=== PATIENT | male | born 1985 | race African-American/Black ===

== ENCOUNTER 2017-06-25 08:03 | Emergency (ER) | payer OTHER ==
[2017-06-25 08:11] VITALS: BP 128/80
--- NOTE | 2017-06-25 08:18 | ED Physician Documentation ---
PD HPI MALE - Stated complaint Stated Complaint: MALE - Chief complaint Chief Complaint: General - History obtained from History obtained from: Patient - History of Present Illness Timing - onset: How many days ago (few) Timing - duration: Days Timing - details: Gradual onset, Still present Associated symptoms: Genital sore / lesion (redness and tender along base of glans under foreskin). No: Dysuria, Discharge PD HPI MALE CONTRIB FACTORS: Sexually active (with just his , who is prone to yeast infections, per patient.) Similar symptoms before: Diagnosis (yeast infections of skin, has had it a few times. He tries to shower after workouts regularly.) Recently seen: Not recently seen Review of Systems Constitutional: denies: Fever, Chills : denies: Dysuria, Frequency, Discharge PD PAST MEDICAL HISTORY - Past Medical History Past Medical History: No - Past Surgical History Past Surgical History: No - Present Medications Home Medications: Ambulatory Orders Medication Instructions Recorded Confirmed Fluconazole [Diflucan] 150 mg PO ONCE #2 tablet 06/25/17 Nystatin Cream [Mycostatin Cream] 1 applic TOP BID #1 tube 06/25/17 - Allergies Allergies/Adverse Reactions: Allergies Allergy/AdvReac Type Severity Reaction Status Date / Time No Known Drug Allergies Allergy Verified 06/25/17 08:12 - Social History Does the pt smoke?: No Smoking Status: Never smoker PD ED PE NORMAL - Vitals Vital signs reviewed: Yes - General General: Alert and oriented X 3, No acute distress, Well developed/nourished - Abdomen Abdomen: Soft, Non tender - Male Male : Other (uncircumcised. No sores at tip. Some redness without discharge around base of glans. No skin breakdown. ) - Back Back: No CVA TTP - Derm Derm: Normal color, Warm and dry - Neuro Neuro: Alert and oriented X 3, No motor deficit, Normal speech Results - Vitals Vitals: Oxygen O2 Source Room air - Labs Labs: Laboratory Tests 06/25/17 06/25/17 08:50 09:01 POC Whole Bld Glucose 112 H Glycated Hemoglobin 6.0 Estim Average Glucose 126 H PD MEDICAL DECISION MAKING - ED course Complexity details: considered differential (he is concerned about diabetes, given recurrent yeast infections. Will check FSBS and A1C. We talked about washing after intercourse as other potential ways to decrease recurrence. 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 ), d/w patient Departure - Departure Disposition: 01 Home, Self Care Clinical Impression: Candidal balanitis Condition: Stable Record reviewed to determine appropriate education?: Yes Instructions: ED Balanitis Prescriptions: Fluconazole [Diflucan] 150 mg PO ONCE #2 tablet Nystatin Cream [Mycostatin Cream] 1 applic TOP BID #1 tube Comments: Fluconazole once today and then repeat in 3 or 4 days. He can also use topical nystatin antifungal in the rash area. To reduce further recurrent infections, be sure to cleanse after intercourse and after workouts and you could use the nystatin once or twice a week lightly. Discharge Date/Time: 06/25/17 09:12
[2017-06-25 09:14] LABS: HEMOGLOBIN A1C 0.66 g/dL
== END 2017-06-25 09:12 | disposition home or self-care (01) ==
LOC: ED 08:03
DX: B37.42 Candidal balanitis (principal)
CPT/HCPCS: 36415; 83036; 99282; 99283

== ENCOUNTER 2017-09-13 09:09 | Emergency (ER) | payer OTHER ==
[2017-09-13 09:16] VITALS: BP 143/79
[2017-09-13] MEDS ORDERED: KETOROLAC 60 MG/2 ML VIAL IM STA (09:46)
[2017-09-13] MEDS ORDERED: BENZONATATE 100 MG CAPSULE PO STA (09:46)
[2017-09-13] MEDS ORDERED: LIDOCAINE PATCH 5% TOP STA (09:46)
--- NOTE | 2017-09-13 09:55 | ED Physician Documentation ---
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 and he also likes to play basketball with his sons acute exacerbation of low back pain, midline, no radiation or sciatica this time, no abdominal pain no incontinence though was in so much pain he had a hard time getting up to the bathroom and then hard time relaxing enough to urinate so he has had some hesitancy no hematuria no meds drugs via needles also a productive cough which is aggravating the back even more he would also like a referral t a PMD for further ongoing care such as perhaps the MRI spine specialists referral and PT Review of Systems Constitutional: denies: Fever Cardiac: denies: Chest pain / pressure Respiratory: reports: Cough GI: denies: Abdominal Pain : denies: Incontinent, Hematuria Musculoskeletal: reports: Back pain Neurologic: denies: Focal weakness, Numbness PD PAST MEDICAL HISTORY - Past Surgical History Past Surgical History: No - Present Medications Home Medications: Ambulatory Orders Medication Instructions Recorded Confirmed Benzonatate [Tessalon] 100 mg PO TID PRN #20 capsule 09/13/17 Carisoprodol [Soma] 350 mg PO Q8H PRN #15 tablet 09/13/17 Ibuprofen [Motrin] 800 mg PO Q8H PRN #30 tablet 09/13/17 Lidocaine Patch 5% [Lidoderm Patch] 1 each TOP DAILY PRN #10 patch 09/13/17 - Allergies Allergies/Adverse Reactions: Allergies Allergy/AdvReac Type Severity Reaction Status Date / Time No Known Drug Allergies Allergy Verified 09/13/17 09:17 - Social History Does the pt smoke?: No Smoking Status: Never smoker PD ED PE NORMAL - Vitals Vital signs reviewed: Yes - General General: Alert and oriented X 3 - Neck Neck: Supple, no meningeal sign - Cardiac Cardiac: RRR - Respiratory Respiratory: No: Clear bilaterally (ronchi R base) - Abdomen Abdomen: Soft, Non tender, Other (no pulsatile mass) - Back Back: Other (TTP mid L spine region, no focal swelling redness or warmth, limited ROM 2/2 pain and spasm) - Derm Derm: Normal color - Extremities Extremities: No deformity - Neuro Neuro: Other (hip flex knee ext foot sorsi planta and great toe all 5/5, neg SLR (only causes back pain), nl sensation, denies saddle anesthesia, no ankle clonis) Results - Vitals Vitals: Vital Signs - 24 hr 09/13/17 09:12 Temperature 36.5 C Heart Rate 80 Respiratory 16 Rate Blood Pressure 143/79 H O2 Saturation 99 Oxygen O2 Source Room air - Labs Labs: Laboratory Tests 09/13/17 10:09 POC Whole Bld Glucose 94 Departure - Departure Disposition: Home, Self Care Clinical Impression: Viral URI with cough Back pain Qualifiers: Back pain location: low back pain Chronicity: acute Back pain laterality: midline Sciatica presence: without sciatica Qualified Code(s): M54.5 - Low back pain Condition: Good Instructions: ED Low Back Pain Injury Follow-Up: [facility] [Provider Group] [facility] [Provider Group] Prescriptions: Benzonatate [Tessalon] 100 mg PO TID PRN #20 capsule PRN Reason: to ease cough Carisoprodol [Soma] 350 mg PO Q8H PRN #15 tablet PRN Reason: muscle spasm Ibuprofen [Motrin] 800 mg PO Q8H PRN #30 tablet PRN Reason: Pain Or Fever > 38c (100.4f) Lidocaine Patch 5% [Lidoderm Patch] 1 each TOP DAILY PRN #10 patch PRN Reason: Pain Comments: The xray did not show pneumonia. I prescribed tessalon capsules to ease your cough I prescribed lidocaine patches, prescription strength motrin and a stronger muscle relaxant for you back - as well as a note to limit lifting at work for a week Please call the two clinics I referred you to in order to establish a primary care provider - he/she can then assist with referral to get a MRI, see a accreditation specialist, get more physical therapy Forms: Activity restrictions
--- NOTE | 2017-09-13 10:23 | XRAY Preliminary Report ---
Exam: XR CHEST 2 VIEW X-RAY IMPRESSION: No focal lung consolidation or pleural effusions. [facility] SITE ID: [id number]
--- NOTE | 2017-09-13 10:24 | XRAY Report ---
EXAM: CHEST RADIOGRAPHY EXAM DATE: 09/13/2017 10:06 AM. CLINICAL HISTORY: Cough R base ronchi. COMPARISON: None. TECHNIQUE: 2 views. FINDINGS: Lungs/Pleura: No focal lung consolidation. No pleural effusion. No pneumothorax. Mediastinum: Cardiac silhouette size appears unremarkable. Other: Osseous structures appear unremarkable. IMPRESSION: No focal lung consolidation or pleural effusions. [facility] Referring Provider Line: [phone] SITE ID: [id number]
== END 2017-09-13 11:00 | disposition home or self-care (01) ==
LOC: ED 09:09
DX: M54.5 Low back pain (principal); J06.9 Acute upper respiratory infection, unspecified; B97.89 Other viral agents as the cause of diseases classified elsewhere
CPT/HCPCS: 71046; 96372; 99283; A9270

== ENCOUNTER 2017-09-22 18:08 | Emergency (ER) | payer OTHER ==
[2017-09-22 18:34] VITALS: BP 172/79
[2017-09-22] MEDS ORDERED: FLUCONAZOLE 100 MG TABLET PO STA (19:02)
--- NOTE | 2017-09-22 19:02 | ED Physician Documentation ---
History of Present Illness - Stated complaint Stated Complaint: MALE - Chief complaint Chief Complaint: General - History obtained from History obtained from: Patient - History of Present Illness Timing: Today Pain level max: 3 Pain level now: 3 Improved by: nothing Worsened by: nothing - Additonal information Additional information: itching to the glans. pt is not circumscised. This is a recurrent problem for this patient. States normally improves with Diflucan. He also states that he has recently been fighting with his and is concerned that she may have cheated on him and is requesting a gonorrhea and chlamydia sample be sent to the lab. He does not have any discharge, testicular pain. Review of Systems GI: denies: Nausea, Vomiting : denies: Dysuria, Frequency, Hesitancy, Testicular pain, Testicular mass PD PAST MEDICAL HISTORY - Past Medical History Past Medical History: No - Past Surgical History Past Surgical History: No - Present Medications Home Medications: Ambulatory Orders Medication Instructions Recorded Confirmed Benzonatate [Tessalon] 100 mg PO TID PRN #20 capsule 09/13/17 Carisoprodol [Soma] 350 mg PO Q8H PRN #15 tablet 09/13/17 Ibuprofen [Motrin] 800 mg PO Q8H PRN #30 tablet 09/13/17 Lidocaine Patch 5% [Lidoderm Patch] 1 each TOP DAILY PRN #10 patch 09/13/17 Fluconazole [Diflucan] 150 mg PO ONCE #1 tablet 09/22/17 Nystatin Cream [Mycostatin Cream] 1 applic TOP BID #1 tube 09/22/17 - Allergies Allergies/Adverse Reactions: Allergies Allergy/AdvReac Type Severity Reaction Status Date / Time No Known Drug Allergies Allergy Verified 09/22/17 18:34 - Social History Does the pt smoke?: No Smoking Status: Never smoker Does the pt drink ETOH?: No Does the pt have substance abuse?: No - Immunizations Immunizations are current?: Yes - POLST Patient has POLST: No PD ED PE NORMAL - Vitals Vital signs reviewed: Yes - General General: Alert and oriented X 3, No acute distress - Male Male : Other (uncircumscised. small erythematous papules to the glans. no urethral discharge. normal testicular exam.) - Derm Derm: Warm and dry - Neuro Neuro: Alert and oriented X 3 - Psych Psych: Normal mood, Normal affect Results - Vitals Vitals: Vital Signs - 24 hr 09/22/17 18:31 Temperature 36.6 C Heart Rate 79 Respiratory 17 Rate Blood Pressure 172/79 H O2 Saturation 97 Oxygen O2 Source Room air PD MEDICAL DECISION MAKING - ED course Complexity details: reviewed old records, considered differential, d/w patient ED course: Patient is a 32-year-old male with recurrent balanitis. Treated with Diflucan here. Will prescribe nystatin for home. Will follow up with his PCP. Gonorrhea and Chlamydia testing were also sent. Patient counseled regarding signs and symptoms for which I believe and urgent re-evaluation would be necessary. Patient with good understanding of and agreement to plan and is comfortable going home at this time This document was made in part using voice recognition software. While efforts are made to proofread this document, sound alike and grammatical errors may occur. Departure - Departure Disposition: 01 Home, Self Care Clinical Impression: Candidal balanitis Condition: Good Instructions: ED Balanitis Follow-Up: your,doctor in 1 week [Other] Prescriptions: Fluconazole [Diflucan] 150 mg PO ONCE #1 tablet Nystatin Cream [Mycostatin Cream] 1 applic TOP BID #1 tube Comments: Return if you worsen. Discharge Date/Time: 09/22/17 19:34
== END 2017-09-22 19:34 | disposition home or self-care (01) ==
LOC: ED 18:08
DX: B37.42 Candidal balanitis (principal)
CPT/HCPCS: 87491; 87591; 99283; A9270

== ENCOUNTER 2018-05-25 15:30 | Emergency (ER) | payer OTHER ==
[2018-05-25 15:37] VITALS: BP 125/64
--- NOTE | 2018-05-25 15:48 | ED Physician Documentation ---
PD HPI LOWER EXT INJURY - Stated complaint Stated Complaint: L LEG LAC - Chief complaint Chief Complaint: Trauma Ext - History obtained from History obtained from: Patient - History of Present Illness PD HPI LOW EXT INJURY LOCATION: Left (He accidentally cut his left thigh with a box puller at home while working just prior to arrival. Tetanus is up-to-date.) Review of Systems Constitutional: reports: Reviewed and negative Throat: reports: Reviewed and negative Cardiac: reports: Reviewed and negative Respiratory: reports: Reviewed and negative PD PAST MEDICAL HISTORY - Past Surgical History Past Surgical History: No - Allergies Allergies/Adverse Reactions: Allergies Allergy/AdvReac Type Severity Reaction Status Date / Time No Known Drug Allergies Allergy Verified 05/25/18 15:37 - Social History Does the pt smoke?: No Smoking Status: Never smoker Does the pt drink ETOH?: No Does the pt have substance abuse?: No - Immunizations Immunizations are current?: Yes - POLST Patient has POLST: No PD ED PE NORMAL - Vitals Vital signs reviewed: Yes - General General: Alert and oriented X 3, No acute distress - Extremities Extremities: Other (Superomedial to the knee there is a 3 cm shallow laceration into subcutaneous fat but no deeper.) - Neuro Neuro: Alert and oriented X 3, Normal speech - Psych Psych: Normal mood, Normal affect Results - Vitals Vitals: Vital Signs - 24 hr 05/25/18 15:33 Temperature 36.6 C Heart Rate 71 Respiratory 16 Rate Blood Pressure 125/64 O2 Saturation 97 Oxygen O2 Source Room air Procedures - Laceration (location) LLE Length in cm: 3 Wound type: Linear, Into subcut fat Neurovascular status: Sensory intact, Motor intact Anesthesia: Lidocaine 1%, With bicarb Wound Preparation: Betadine, Irrigated copiously NS Skin layer closure: [place] (8) Other: Tetanus UTD Complexity: Simple PD MEDICAL DECISION MAKING - Sepsis Event Vital Signs: Vital Signs - 24 hr 05/25/18 15:33 Temperature 36.6 C Heart Rate 71 Respiratory 16 Rate Blood Pressure 125/64 O2 Saturation 97 Oxygen O2 Source Room air Departure - Departure Disposition: 01 Home, Self Care Clinical Impression: Laceration of left leg Qualifiers: Encounter type: initial encounter Qualified Code(s): S81.812A - Laceration without foreign body, left lower leg, initial encounter Condition: Good Record reviewed to determine appropriate education?: Yes Instructions: ED Laceration Ext Sutr Stap Tape Comments: Come back for any signs of infection which would include: Redness, swelling, drainage, increased pain, or fevers. Follow-up with your physician in 10-14 days for staple removal.
[2018-05-25] MEDS ORDERED: BUFFERED LIDOCAINE 10 ML SYRINGE ONE (15:53)
== END 2018-05-25 16:20 | disposition home or self-care (01) ==
LOC: ED 15:30
DX: S81.812A Laceration without foreign body, left lower leg, initial encounter (principal); W26.0XXA Contact with knife, initial encounter; Y99.0 Civilian activity done for income or pay
CPT/HCPCS: 12002; 99282; 99283

== ENCOUNTER 2018-06-29 14:52 | Emergency (ER) | payer OTHER ==
[2018-06-29 15:06] VITALS: BP 138/62
--- NOTE | 2018-06-29 15:34 | ED Physician Documentation ---
PD HPI MALE - Stated complaint Stated Complaint: MALE - Chief complaint Chief Complaint: General - History obtained from History obtained from: Patient - History of Present Illness PD HPI MALE CONTRIB FACTORS: Sexually active Similar symptoms before: Diagnosis (History of similar symptoms in the past diagnosed as charo balanitis.) - Additional information Additional information: The patient is a 33-year-old male who complains of penile itching since yesterday. He denies dysuria or penile discharge. He reports that his was recently treated for vaginal yeast infection. He has a history of similar symptoms in the past, which has been successfully treated with Diflucan. Review of Systems Constitutional: denies: Fever : reports: Other (Penile itching.). denies: Dysuria, Discharge Skin: denies: Rash PD PAST MEDICAL HISTORY - Past Medical History Past Medical History: No - Past Surgical History Past Surgical History: No - Present Medications Home Medications: Ambulatory Orders Medication Instructions Recorded Confirmed Fluconazole [Diflucan] 200 mg PO ONCE #1 tablet 06/29/18 - Allergies Allergies/Adverse Reactions: Allergies Allergy/AdvReac Type Severity Reaction Status Date / Time No Known Drug Allergies Allergy Verified 06/30/18 01:54 - Social History Does the pt smoke?: No Smoking Status: Never smoker Does the pt drink ETOH?: No Does the pt have substance abuse?: No - Immunizations Immunizations are current?: Yes - POLST Patient has POLST: No PD ED PE NORMAL - Vitals Vital signs reviewed: Yes (Borderline hypertension.) - HEENT HEENT: Atraumatic - Respiratory Respiratory: No respiratory distress - Male Male : Other (Uncircumcised penis, with slight erythema of the distal shaft and glans. No open sores detected.) Results - Vitals Vitals: Vital Signs - 24 hr 06/29/18 15:04 Temperature 36.7 C Heart Rate 58 L Respiratory 16 Rate Blood Pressure 138/62 H O2 Saturation 99 Oxygen O2 Source Room air PD MEDICAL DECISION MAKING - ED course Complexity details: considered differential, d/w patient ED course: The patient's presentation is most consistent with candidal balanitis. He is being discharged with prescription for Diflucan. I discussed with him the expected course of illness, antifungal treatment and outpatient follow-up, as well as potentially worrisome signs or symptoms that should prompt reevaluation in the emergency department. Departure - Departure Disposition: Home, Self Care Clinical Impression: Yeast dermatitis of penis Condition: Stable Instructions: ED Candidiasis Cutaneous Follow-Up: [facility] [Provider Group] Prescriptions: Fluconazole [Diflucan] 200 mg PO ONCE #1 tablet Comments: Wash your penile shaft with warm soapy water daily. Take Diflucan as prescribed. Follow-up with your primary physician, or return to the emergency department if increasing redness, swelling, or otherwise worsening symptoms. Discharge Date/Time: 06/29/18 15:38
== END 2018-06-29 15:38 | disposition home or self-care (01) ==
LOC: ED 14:52
DX: B37.89 Other sites of candidiasis (principal); L30.8 Other specified dermatitis
CPT/HCPCS: 99283

== ENCOUNTER 2018-06-30 01:39 | Emergency (ER) | payer OTHER ==
[2018-06-30 01:50] VITALS: BP 131/76
[2018-06-30] MEDS ORDERED: LIDOCAINE OINTMENT 5% 35.44 GM TUBE TOP STA (02:11)
[2018-06-30] MEDS ORDERED: FLUCONAZOLE 100 MG TABLET PO STA (02:11)
[2018-06-30] MEDS ORDERED: DEXAMETHASONE 10 MG/ML VIAL PO STA (02:11)
--- NOTE | 2018-06-30 02:11 | ED Physician Documentation ---
PD HPI MALE - Stated complaint Stated Complaint: BALANTITIS - Chief complaint Chief Complaint: General - History obtained from History obtained from: Patient - History of Present Illness Timing - onset: How many days ago (1-2) Timing - duration: Days Timing - details: Gradual onset, Still present Associated symptoms: Genital sore / lesion (redness with irritation and itching.). No: Dysuria, Scrotal swelling, Back pain PD HPI MALE CONTRIB FACTORS: Sexually active Recently seen: Emergency Dept (seen earlier today with this and Dx with yeast balanitis, given dose Diflucan. He says he is still having itching and burning around base of glans penis, not improved yet today.) Review of Systems Constitutional: denies: Fever, Chills : denies: Dysuria, Frequency Skin: reports: Rash PD PAST MEDICAL HISTORY - Past Medical History Past Medical History: No - Past Surgical History Past Surgical History: No - Present Medications Home Medications: Ambulatory Orders Medication Instructions Recorded Confirmed Fluconazole [Diflucan] 200 mg PO ONCE #1 tablet 06/29/18 - Allergies Allergies/Adverse Reactions: Allergies Allergy/AdvReac Type Severity Reaction Status Date / Time No Known Drug Allergies Allergy Verified 06/30/18 01:54 - Social History Does the pt smoke?: No Smoking Status: Never smoker Does the pt drink ETOH?: No Does the pt have substance abuse?: No - Immunizations Immunizations are current?: Yes - POLST Patient has POLST: No PD ED PE NORMAL - Vitals Vital signs reviewed: Yes - General General: Alert and oriented X 3, No acute distress, Well developed/nourished - Abdomen Abdomen: Soft, Non tender - Male Male : Other (scrotum and base of penis nromal. When he retracts the foreskin, there is redness without breakdown. No blisters nor ulcerations. ) Results - Vitals Vitals: Vital Signs - 24 hr 06/30/18 06/30/18 01:40 02:33 Temperature 36.2 C L Heart Rate 65 Respiratory 16 17 Rate Blood Pressure 131/76 H O2 Saturation 99 Oxygen O2 Source Room air Departure - Departure Disposition: 01 Home, Self Care Clinical Impression: Candidal balanitis Condition: Stable Record reviewed to determine appropriate education?: Yes Instructions: ED Balanitis Comments: You can use the lidocaine if needed for discomfort. The antifungal extra dose and the steroid dose should help reduce symptoms over the next few days. Continue the prior instructions from the earlier visit. Discharge Date/Time: 06/30/18 02:34
[2018-06-30] MEDS ORDERED: CHERRY SYRUP 10 ML UDC PO ONE (02:17)
== END 2018-06-30 02:34 | disposition home or self-care (01) ==
LOC: ED 01:39
DX: B37.42 Candidal balanitis (principal)
CPT/HCPCS: 99283; A9270

== ENCOUNTER 2018-10-30 13:25 | Emergency (ER) | payer OTHER ==
[2018-10-30] MEDS ORDERED: KETOROLAC 60 MG/2 ML VIAL IM STA (14:18)
--- NOTE | 2018-10-30 14:22 | ED Physician Documentation ---
PD HPI BACK PAIN - Stated complaint Stated Complaint: BACK PX - Chief complaint Chief Complaint: Back Pain - History obtained from History obtained from: Patient - History of Present Illness Timing - onset: Yesterday (After working out his back tightened up. Has had this before and was in PT in the past. LBP without radiation. No weak/numb/tingling or saddle anesthesia.) Review of Systems Ten Systems: 10 systems reviewed and negative Nose: reports: Reviewed and negative Throat: reports: Reviewed and negative Cardiac: reports: Reviewed and negative Respiratory: reports: Reviewed and negative PD PAST MEDICAL HISTORY - Past Surgical History Past Surgical History: No - Present Medications Home Medications: Ambulatory Orders Medication Instructions Recorded Confirmed Fluconazole [Diflucan] 200 mg PO ONCE #1 tablet 06/29/18 Oxycodone HCl/Acetaminophen 1 - 2 each PO Q6H PRN #14 tablet 10/30/18 [Percocet 5-325 mg Tablet] - Allergies Allergies/Adverse Reactions: Allergies Allergy/AdvReac Type Severity Reaction Status Date / Time No Known Drug Allergies Allergy Verified 06/30/18 01:54 - Social History Does the pt smoke?: No Smoking Status: Never smoker Does the pt drink ETOH?: No Does the pt have substance abuse?: No - Immunizations Immunizations are current?: Yes - POLST Patient has POLST: No PD ED PE NORMAL - Vitals Vital signs reviewed: Yes - General General: Alert and oriented X 3, No acute distress - HEENT HEENT: PERRL, EOMI - Neck Neck: Supple, no meningeal sign, No bony TTP - Back Back: No spinal TTP, Other (Muscular tenderness of the low paralumbar muscles bilaterally. The patient has equal and normal Achilles and patellar reflexes bilaterally. Normal sensation in all areas of the legs. Patient denies saddle anesthesia. Normal strength in flexion-extension at the ankles, knees, and flexion of the hips.) - Neuro Neuro: Alert and oriented X 3, Normal speech Results - Vitals Vitals: Vital Signs - 24 hr 10/30/18 13:29 Temperature 36.7 C Heart Rate 87 Respiratory 18 Rate Blood Pressure 156/100 H O2 Saturation 99 Oxygen O2 Source Room air Departure - Departure Disposition: 01 Home, Self Care Clinical Impression: Back pain Qualifiers: Back pain location: back pain in other location Chronicity: chronic Qualified Code(s): M54.9 - Dorsalgia, unspecified; G89.29 - Other chronic pain Condition: Good Record reviewed to determine appropriate education?: Yes Instructions: ED Low Back Pain Injury Prescriptions: Oxycodone HCl/Acetaminophen [Percocet 5-325 mg Tablet] 1 - 2 each PO Q6H PRN #14 tablet PRN Reason: pain Comments: Your blood pressure was elevated today on check into the emergency department. This does not mean that you have hypertension, it is a common phenomenon to come to the emergency department and have elevated blood pressure. I recommend that you see your primary care physician within the week to have it rechecked when you are feeling better. Call your doctor to arrange a follow-up appointment, make the next available appointment. In the interim, return anytime if worse or if new symptoms develop. Do not drink or drive while taking narcotic pain medication. Note that many narcotic pain relievers also contain Tylenol/acetaminophen. Please ensure that your total dose of acetaminophen from all sources does not exceed 3 g (3000 mg) per day. You may get constipated while on this medication. Take a stool softener such as Colace twice a day while you are on it. Also add an [id number] laxative such as senna or MiraLAX on any day that you do not have a bowel movement. If you received a narcotic pain medication or sedative while in the emergency department, do not drive for the next 24 hours. Forms: Activity restrictions
[2018-10-30 14:54] VITALS: BP 150/95
== END 2018-10-30 14:54 | disposition home or self-care (01) ==
LOC: ED 13:25
DX: M54.5 Low back pain (principal); G89.29 Other chronic pain; R03.0 Elevated blood-pressure reading, without diagnosis of hypertension
CPT/HCPCS: 96372; 99283

== ENCOUNTER 2019-04-01 12:13 | Emergency (ER) | payer OTHER ==
--- NOTE | 2019-04-01 13:33 | ED Physician Documentation ---
PD HPI BACK PAIN - Stated complaint Stated Complaint: L LEG PX - Chief complaint Chief Complaint: Trauma Ch/Bk - History obtained from History obtained from: Patient - History of Present Illness Timing - onset: Yesterday (Playing basketball yesterday, jumped and developed posterior L knee pain while going up for a jump. Pain increased today, unable to walk, worse with movement. Numb tingly L foot, not dermatomal.) Review of Systems Constitutional: denies: Fever, Chills Cardiac: reports: Reviewed and negative Respiratory: reports: Reviewed and negative GI: reports: Reviewed and negative PD PAST MEDICAL HISTORY - Past Medical History Past Medical History: No - Past Surgical History Past Surgical History: No - Present Medications Home Medications: Ambulatory Orders Medication Instructions Recorded Confirmed Hydrocodone/Acetaminophen 1 - 2 each PO Q6H PRN #14 tablet 04/01/19 [Hydrocodon-Acetaminophen 5-325] Ibuprofen [Motrin] 800 mg PO Q8H PRN #30 tablet 04/01/19 - Allergies Allergies/Adverse Reactions: Allergies Allergy/AdvReac Type Severity Reaction Status Date / Time No Known Drug Allergies Allergy Verified 04/01/19 12:31 - Social History Does the pt smoke?: No Smoking Status: Never smoker Does the pt drink ETOH?: No Does the pt have substance abuse?: No - Immunizations Immunizations are current?: Yes - POLST Patient has POLST: No PD ED PE NORMAL - Vitals Vital signs reviewed: Yes - General General: Alert and oriented X 3, No acute distress, Well developed/nourished - Back Back: No spinal TTP - Extremities Extremities: Other (Pain of posterior L knee with active flexion; However he is not really very tender over the hamstring. The patient has equal and normal Achilles and patellar reflexes bilaterally. Normal sensation in all areas of the legs. Patient denies saddle anesthesia. Normal strength in flexion- extension at the ankles, knees, and flexion of the hips.) - Neuro Neuro: Alert and oriented X 3, Normal speech Results - Vitals Vitals: Vital Signs - 24 hr 04/01/19 12:26 Temperature 36.8 C Heart Rate 55 L Respiratory 14 Rate Blood Pressure 150/75 H O2 Saturation 100 Oxygen O2 Source Room air PD MEDICAL DECISION MAKING - ED course ED course: He presents with back and leg pain, really seems more consistent to me with sciatica than it does hamstring tear. Could be a combination of both but seems more the former if so. Departure - Departure Disposition: 01 Home, Self Care Clinical Impression: Sciatica of left side Condition: Good Record reviewed to determine appropriate education?: Yes Instructions: ED Sciatica Prescriptions: Hydrocodone/Acetaminophen [Hydrocodon-Acetaminophen 5-325] 1 - 2 each PO Q6H PRN #14 tablet PRN Reason: pain Ibuprofen [Motrin] 800 mg PO Q8H PRN #30 tablet PRN Reason: PAIN &/OR FEVER Comments[place] for your back and leg. After a while if that is not effective they can talk to you about an MRI but I would not pursue that at this juncture. Return for new or worsening symptoms. Forms: Activity restrictions
[2019-04-01] MEDS ORDERED: KETOROLAC 60 MG/2 ML VIAL IM STA (13:34)
[2019-04-01 13:50] VITALS: BP 139/93
== END 2019-04-01 13:49 | disposition home or self-care (01) ==
LOC: ED 12:13
DX: M54.32 Sciatica, left side (principal)
CPT/HCPCS: 96372; 99283

== ENCOUNTER 2019-04-12 06:22 | Outpatient (CLI) | payer OTHER ==
--- NOTE | 2019-04-12 15:33 | MRI Report ---
Reason: LESION OF SCIATIC NERVE, POSTERIOR MUSCLE GROUP AT Procedure Date: 04/12/2019 Accession Number: [id number] / [id number] Procedure: MRI - Femur/Thigh LT W/O CPT Code: FULL RESULT: EXAM: MRI BILATERAL FEMURS/THIGHS WITHOUT CONTRAST EXAM DATE: 04/12/2019 08:35 AM. CLINICAL HISTORY: LESION OF SCIATIC NERVE, POSTERIOR MUSCLE GROUP. COMPARISON: None. TECHNIQUE: Multiplanar, multisequence T1-weighted and fluid-sensitive sequences of the bilateral thighs without contrast. Other: None. FINDINGS: Bones: No fractures or subluxations. No marrow edema. No bone lesions. Joint Spaces: Visualized portions of the hip joint is unremarkable on these large [id number] images. Knees are not included. Tendons: The semimembranosus attachment to the left ischial tuberosity is intact although there is a generous amount of surrounding fluid. Series 401 image 35. Some type I signal change also is present. No focal fluid-filled gap. Semitendinosus and long head biceps attachment appear unremarkable. Musculature: Small focal region of increased T2 signal at the posterior aspect of the biceps femoris. Series 401 image 20. No hematoma or a focal fluid-filled gap. Other: The visualized sciatic and femoral nerves are unremarkable. The subcutaneous tissues are unremarkable. In particular, heavily T2-weighted sequences show no evidence for abnormal increased T2 signal in the region of the sciatic nerve. Sciatic nerve is well visualized. IMPRESSION: 1. Normal sciatic nerve by MRI. 2. Some type I signal changes seen at the attachment of the semimembranosus to the left ischial tuberosity. Surrounding fluid also identified. No full-thickness tears or fluid-filled gaps. 3. The conjoined origin of the semitendinosus and biceps femoris is normal at ischial tuberosity. 4. There is a small amount of intravascular signal seen at the posterior aspect of the mid biceps femoris. No focal full-thickness or partial-thickness tears. 5. Normal bones. [facility]
== END 2019-04-12 06:23 | disposition home or self-care (01) ==
LOC: DI 06:22
PROVIDERS: ATTEND Nurse Practitioner Family
DX: G57.00 Lesion of sciatic nerve, unspecified lower limb (principal); S76.309A Unspecified injury of muscle, fascia and tendon of the posterior muscle group at thigh level, unspecified thigh, initial encounter

== ENCOUNTER 2019-04-12 08:37 | Emergency (ER) | payer OTHER ==
[2019-04-12 08:52] VITALS: BP 137/82
--- NOTE | 2019-04-12 08:55 | ED Physician Documentation ---
History of Present Illness - Stated complaint Stated Complaint: LT LEG PX - Chief complaint Chief Complaint: Ext Problem - History obtained from History obtained from: Patient - Additonal information Additional information: Patient is a 33-year-old male presenting with persistently discomfort over the past several weeks after basketball injury. Patient has been evaluated for this issue previously and it is thought to be related to left-sided sciatica and possibly a hamstring injury. Patient received MRI here earlier today and has primary care follow-up scheduled for later this month. Patient was seen about 10 days ago in the ED and prescribed hydrocodone and patient is requesting refill of this medication at this time. Patient reports persistent discomfort that has somewhat improved, but no new change in sensation, strength, or range of motion to the leg. Patient also denies fever, rash, skin changes, or leg swelling. No issues with urination or bowel movements. No other improving or worsening factors noted. Review of Systems Constitutional: denies: Fever GI: denies: Diarrhea : denies: Dysuria Skin: denies: Rash Musculoskeletal: reports: Extremity pain. denies: Joint pain, Extremity swelling Neurologic: denies: Focal weakness, Numbness PD PAST MEDICAL HISTORY - Past Medical History Past Medical History: No - Past Surgical History Past Surgical History: No - Present Medications Home Medications: Ambulatory Orders Medication Instructions Recorded Confirmed Hydrocodone/Acetaminophen 1 - 2 each PO Q6H PRN #14 tablet 04/01/19 [Hydrocodon-Acetaminophen 5-325] Ibuprofen [Motrin] 800 mg PO Q8H PRN #30 tablet 04/01/19 - Allergies Allergies/Adverse Reactions: Allergies Allergy/AdvReac Type Severity Reaction Status Date / Time No Known Drug Allergies Allergy Verified 04/12/19 08:52 - Social History Does the pt smoke?: No Smoking Status: Never smoker Does the pt drink ETOH?: No Does the pt have substance abuse?: No - Immunizations Immunizations are current?: Yes - POLST Patient has POLST: No PD ED PE NORMAL - Vitals Vital signs reviewed: Yes - General General: Alert and oriented X 3, No acute distress, Well developed/nourished - HEENT HEENT: Atraumatic, Moist mucous membranes - Neck Neck: Supple, no meningeal sign - Cardiac Cardiac: Strong equal pulses - Respiratory Respiratory: No respiratory distress - Derm Derm: Normal color, Warm and dry, No rash - Extremities Extremities: No deformity, No tenderness to palpate, No edema, Other (Positive straight leg test on left) - Neuro Neuro: Alert and oriented X 3, No motor deficit, No sensory deficit - Psych Psych: Normal mood, Normal affect Results - Vitals Vitals: Vital Signs - 24 hr 04/12/19 08:50 Temperature 35.7 C L Heart Rate 60 Respiratory 16 Rate Blood Pressure 137/82 H O2 Saturation 99 Oxygen O2 Source Room air PD MEDICAL DECISION MAKING - ED course Complexity details: reviewed old records, considered differential, d/w patient ED course: Patient presenting with persistent sciatica-like discomfort and possible hamstring injury without new inciting incident or trauma since last evaluation. Patient has received MRI of spine earlier today, however, no radiology interpretation yet prepared. Patient may be experiencing herniated disc and sciatica, but have lower suspicion for other complications including cauda equina or epidural abscess. Do not feel the patient is likely experiencing bony injury such as dislocation or fracture and do not feel he requires x-rays. Do not have high suspicion for joint infection, gout, DVT, or other infectious process. Do not feel appropriate to refill narcotics given chronicity of complaints, as well as improvement of complaints. Feel that patient could benefit from Toradol which was administered in the ED and otherwise discussed other supportive cares for home, [id number] medications, stretching and physical therapy, and primary care follow-up. Patient voiced understanding and is comfortable with discharge plan. Departure - Departure Disposition: 01 Home, Self Care Clinical Impression: Sciatica Qualifiers: Laterality: left Qualified Code(s): M54.32 - Sciatica, left side Condition: Good Instructions: ED Sciatica, ED Exercises Lumbar Muscles, ED Back Care Tips Follow-Up: GAIL CALIX MD [Primary Care Provider] - Within 3 Days Comments: Recommend stretching, massage, physical therapy, and heat application. May also try [id number] medications including Aleve, Profen, and Tylenol. Recommend contacting primary care physician in next 2 to 3 days to see if able to move up appointment from later this month. Return to ED sooner if experience new injury, worsening symptoms, or have other concerns.
[2019-04-12] MEDS ORDERED: KETOROLAC 60 MG/2 ML VIAL IM STA (09:05)
== END 2019-04-12 09:32 | disposition home or self-care (01) ==
LOC: ED 08:37
DX: M54.32 Sciatica, left side (principal); S76.302A Unspecified injury of muscle, fascia and tendon of the posterior muscle group at thigh level, left thigh, initial encounter; X58.XXXA Exposure to other specified factors, initial encounter; Y93.67 Activity, basketball
CPT/HCPCS: 96372; 99282; 99283